=== PATIENT | female | born 1945 | race Caucasian/White ===

== ENCOUNTER → 2016-04-25 | Day surgery (SDC) | payer MEDICARE, OTHER ==
[~2016-04-25] MED LIST: ACET500T33 PO; ASCO10006 PO; ASPI81TA2 PO; BUPR150T4 PO; CALC-56 PO; CHOL10003 PO; DOCU-27 PO; ESTR0.5T PO; FLUT10SP NS; IBUP-1027 PO; IV RINGERS,LACTATED 1000ML 1,000 ML IV SCH; LIDOCAINE 2% PF Vial for OR 5 ML VIAL. ONE; LORA0.5T PO; MAGN250T5 PO; METH4TAB2 PO; MULT1TAB52 PO; OMEP40CA5 PO; PRAV40TA2 PO; PROPOFOL 20 ML IV ONE; RANI150T6 PO; TRAM50TA PO; ZOLP5TAB PO
[2016-04-25 08:13] VITALS: BP 119/75
== END | disposition home or self-care (01) ==
LOC: ENDOS 06:24
PROVIDERS: ATTEND Internal Medicine Gastroenterology
DX: K64.0 First degree hemorrhoids (principal); K29.50 Unspecified chronic gastritis without bleeding; K57.30 Diverticulosis of large intestine without perforation or abscess without bleeding; E78.00 Pure hypercholesterolemia, unspecified; G47.30 Sleep apnea, unspecified; K21.9 Gastro-esophageal reflux disease without esophagitis; F32.9 Major depressive disorder, single episode, unspecified; Z90.710 Acquired absence of both cervix and uterus; Z98.41 Cataract extraction status, right eye; Z98.42 Cataract extraction status, left eye; Z87.39 Personal history of other diseases of the musculoskeletal system and connective tissue; Z85.72 Personal history of non-Hodgkin lymphomas; Z86.14 Personal history of Methicillin resistant Staphylococcus aureus infection
CPT/HCPCS: 43235; 45378; J2704

== ENCOUNTER → 2016-05-12 | Outpatient (CLI) | payer MEDICARE, OTHER ==
[2016-04-25 08:13] VITALS: BP 119/75
[~2016-05-12] MED LIST changes: -IV RINGERS,LACTATED 1000ML 1,000 ML IV SCH; -LIDOCAINE 2% PF Vial for OR 5 ML VIAL. ONE; -PROPOFOL 20 ML IV ONE
[2016-05-12 11:41] LABS: ALBUMIN 3.6 g/dL (3.4-5.0); CALCIUM 9.2 mg/dL (8.5-10.1); CREATININE 1.1 mg/dL (0.6-1.0); GFR 48.8; POTASSIUM 4.3 mmol/L (3.5-5.1); TOTAL BILIRUBIN 0.4 mg/dL (0.2-1.0); TOTAL PROTEIN 7.2 g/dL (6.4-8.2)
[2016-05-12 11:43] LABS: CHOLESTEROL/HDL RATIO 3.6
== END | disposition home or self-care (01) ==
LOC: LAB 10:45
PROVIDERS: ATTEND Family Medicine
DX: M85.80 Other specified disorders of bone density and structure, unspecified site (principal); E78.5 Hyperlipidemia, unspecified
CPT/HCPCS: 36415; 80053; 80061; 82306

== ENCOUNTER → 2017-02-26 | Outpatient (CLI) | payer MEDICARE, OTHER ==
[2016-04-25 08:13] VITALS: BP 119/75
[~2017-02-26] MED LIST changes: +ASCO100020 PO; -ASCO10006 PO; +ASPI-630 PO; -ASPI81TA2 PO; +DOCU-109 PO; -DOCU-27 PO; +MAGN250T10 PO; -MAGN250T5 PO
--- NOTE | 2017-02-26 09:18 | RAD ---
DATE: 02/26/2017 EXAM: DIGITAL SCREEN BILAT W/CAD HISTORY: Screening study. COMPARISON: 02/26/2016 This study was interpreted with the benefit of Computerized Aided Detection (CAD). The breast parenchyma is heterogeneously dense, which could reduce sensitivity of mammography. Breast parenchyma level C. FINDINGS: Digital MLO and CC mammograms of both breasts were obtained. Comparison study is dated 02/26/2016. The breast parenchyma is heterogeneously dense which can obscure a lesion mammography (breast density code C ). Benign-appearing calcifications are seen within both breasts. Scattered vascular calcifications are again seen. No spiculated mass is noted. No malignant appearing calcification or area of architectural distortion is noted. Since the previous examination there has been no significant interval change. IMPRESSION: BI-RADS Category 1, negative. There is no mammographic evidence of malignancy. Routine yearly screening mammography is recommended for follow-up. BI-RADS CATEGORY: 1 NEGATIVE RECOMMENDED FOLLOW-UP: 12M 12 MONTH FOLLOW-UP PQRS compliance statement: Patient information was entered into a reminder system with a target due date 02/26/2018 for the next mammogram. Mammography is a sensitive method for finding small breast cancers, but it does not detect them all and is not a substitute for careful clinical examination. A negative mammogram does not negate a clinically suspicious finding and should not result in delay in biopsying a clinically suspicious abnormality. "Our facility is accredited by the [employer] Mammography [employer]."
== END | disposition home or self-care (01) ==
LOC: MAMMO 08:43
PROVIDERS: ATTEND Family Medicine
DX: Z12.31 Encounter for screening mammogram for malignant neoplasm of breast (principal)
CPT/HCPCS: G0202; 77067

== ENCOUNTER → 2017-04-02 | Outpatient (CLI) | payer MEDICARE, OTHER ==
[~2017-04-02] MED LIST changes: -ACET500T33 PO; -ASCO100020 PO; -ASPI-630 PO; -BUPR150T4 PO; -CALC-56 PO; -CHOL10003 PO; +CONTRAST GIVEN MC; -DOCU-109 PO; -ESTR0.5T PO; -FLUT10SP NS; -IBUP-1027 PO; -LORA0.5T PO; -MAGN250T10 PO; -METH4TAB2 PO; -MULT1TAB52 PO; -OMEP40CA5 PO; -PRAV40TA2 PO; -RANI150T6 PO; -TRAM50TA PO; -ZOLP5TAB PO
[2017-04-02] MEDS: IOHEXOL 300 MG/ML 100ML VIAL. IV (10:54)
[2017-04-02] MEDS: IOHEXOL 240 MG/ML 50ML VIAL. PO (10:55)
== END | disposition home or self-care (01) ==
LOC: CT 09:14
DX: C82.90 Follicular lymphoma, unspecified, unspecified site (principal)
CPT/HCPCS: 70492; 71270; 74178; Q9966; Q9967

== ENCOUNTER → 2017-09-25 | Outpatient (CLI) | payer MEDICARE, OTHER | END | disposition home or self-care (01) | LOC: ECHO 09:38 | DX: R00.2 Palpitations (principal); E78.5 Hyperlipidemia, unspecified; E78.00 Pure hypercholesterolemia, unspecified; K21.9 Gastro-esophageal reflux disease without esophagitis | CPT/HCPCS: 93306 ==

== ENCOUNTER → 2017-11-06 | Outpatient (CLI) | payer MEDICARE, OTHER ==
[2016-04-25 08:13] VITALS: BP 119/75
[~2017-11-06] MED LIST changes: +ACET500T33 PO; +ASCO100020 PO; +ASPI-630 PO; +BUPR150T4 PO; +CALC-56 PO; +CHOL10003 PO; -CONTRAST GIVEN MC; +DOCU-109 PO; +ESTR0.5T PO; +FLUT10SP NS; +IBUP-1027 PO; +LORA0.5T PO; +MAGN250T10 PO; +METH4TAB2 PO; +MULT1TAB52 PO; +OMEP40CA5 PO; +PRAV40TA2 PO; +RANI150T21 PO; +TRAM50TA PO; +ZOLP5TAB PO
--- NOTE | 2017-11-06 14:15 | CARD ---
MR#: [id number] Date of Study: 11/06/2017 Ordering Physician: LANDRY DANIELS, Referring Physician: LANDRY DANIELS, Tech: Sandra Nick IZA APPROVED REPORT INDICATION Chest Pain Reason : Patient complained of shortness of breath PROCEDURE The patient underwent an Exercise Stress Test using the Tramaine Protocol. Blood pressure, heart rate, a nd EKG were monitored. An Echocardiogram was performed by pm technician in four stages in quad fashion. At peak stress four se lected images were obtained and placed side by side with resting images for comparison. STRESS ECHO FINDINGS The resting Echocardiogram showed normal left ventricular systolic contractility with an estimated Ej ection Fraction of about 60 %. The Resting Echocardiogram showed normal augmentation of myocardial wall segments using a 16 segment model. The Stress Echocardiogram showed normal augmentation of myocardial wall segments using a 16 segment m frank. The Stress Echocardiogram left ventricular systolic contractility has an estimated Ejection Fraction of about 70%. Test Type: Exercise Stress Nurse/Tech: Francheska Pereira R.N. Test Indications: c/p Cardiac History and Allergies: see ehr Medications: see ehr Medical History: see ehr Resting ECG: SR inverted T waves in leads AVR,AVL, V1, V2 Resting Heart Rate: 65 bpm Resting Blood Pressure: 110/43mmHg Pretest Chest Pain: No chest pain Nurse/Tech Notes S1S2, lungs CTA Stress Symptoms fatigue and SOB. P wave became almost non-existant or possibly even inverted during recovery period a nd persisted till the end of recovery period POST EXERCISE Reason for Termination: Reached target heart rate Target HR: Yes Max HR: 135 bpm 92% of Maximum Predicted HR: 147 bpm Exercise duration: 7:51 min:sec, 3 Stage Exercise capacity: 10.1METs Max Blood Pressure: 132/68mmHg Blood Pressure response to exercise: Normal blood pressure response during stress. Heart Rate response to exercise: wnl Chest Pain: No. Arrhythmia: No. ST Change: No. INTERPRETATION Stress EKG Conclusion: Baseline EKG showed sinus rhythm. No ischemic changes at peak stress. No arr hythmias. Preliminary Notification Critical Value: No <Conclusion> Treadmill exercise stress echocardiogram did not show any evidence of ischemia or infarct. Normal left ventricle systolic function with ejection fraction estimated at 60%. Patient had good activity tolerance. Low risk for cardiac events. Signed by : Kieran Vázquez, Electronically Approved : 11/06/2017 14:14:31
== END | disposition home or self-care (01) ==
LOC: ECHO 12:41
PROVIDERS: ATTEND Internal Medicine Cardiovascular Disease
DX: R07.9 Chest pain, unspecified (principal); R06.02 Shortness of breath; I10 Essential (primary) hypertension; E78.5 Hyperlipidemia, unspecified; E78.00 Pure hypercholesterolemia, unspecified; G43.909 Migraine, unspecified, not intractable, without status migrainosus; K21.9 Gastro-esophageal reflux disease without esophagitis; Z86.2 Personal history of diseases of the blood and blood-forming organs and certain disorders involving the immune mechanism; Z85.72 Personal history of non-Hodgkin lymphomas; Z86.14 Personal history of Methicillin resistant Staphylococcus aureus infection; Z86.010 Personal history of colon polyps; Z90.710 Acquired absence of both cervix and uterus; Z91.09 Other allergy status, other than to drugs and biological substances; Z88.5 Allergy status to narcotic agent; Z88.2 Allergy status to sulfonamides; Z88.3 Allergy status to other anti-infective agents; Z88.6 Allergy status to analgesic agent
CPT/HCPCS: 93017; 93350

== ENCOUNTER → 2018-03-03 | Outpatient (CLI) | payer MEDICARE, OTHER ==
[2016-04-25 08:13] VITALS: BP 119/75
--- NOTE | 2018-03-04 08:29 | RAD ---
Chest radiograph 03/03/2018 4:58 PM INDICATION: Cough COMPARISON: Chest March 2017 TECHNIQUE: Frontal and lateral views of the chest are provided. FINDINGS: The cardiomediastinal silhouette is within normal limits. There are no pleural effusions. There is no pulmonary vascular congestion. There is no pneumothorax. There is tree-in-bud nodular airspace disease in the right upper lobe. Anterior cervical discectomy and fusion hardware is identified in the lower cervical spine. IMPRESSION: Tree-in-bud nodular airspace disease is identified in the right upper lobe. Findings may be seen in the setting of infectious/inflammatory pneumonitis. A 4-6 week follow-up chest radiograph may be of benefit to ensure resolution. Electronically signed by: Cassandra Malik MD (03/04/2018 8:25 AM) [id number]
== END | disposition home or self-care (01) ==
LOC: RAD 16:36
PROVIDERS: ATTEND Family Medicine
DX: R05 Cough (principal)
CPT/HCPCS: 71046

== ENCOUNTER → 2018-03-04 | Outpatient (CLI) | payer MEDICARE, OTHER ==
[2016-04-25 08:13] VITALS: BP 119/75
--- NOTE | 2018-03-04 12:19 | RAD ---
DATE: 03/04/2018 EXAM: MAMMO MARLENA SCREENING BILATERAL HISTORY: Routine screening COMPARISON: 02/26/2017 This study was interpreted with the benefit of Computerized Aided Detection (CAD). Breast Density: SCATTERED The breast parenchyma shows scattered fibroglandular densities. Breast parenchyma level B. FINDINGS: 2-D and 3-D tomosynthesis imaging was performed in CC and MLO projections. No new or enlarging breast densities are seen. Benign type calcifications are noted. No suspicious microcalcifications have developed. IMPRESSION: Stable mammograms without evidence of malignancy. BI-RADS CATEGORY: 2 BENIGN FINDING(S) RECOMMENDED FOLLOW-UP: 12M 12 MONTH FOLLOW-UP PQRS compliance statement: Patient information was entered into a reminder system with a target due date for the next mammogram. Mammography is a sensitive method for finding small breast cancers, but it does not detect them all and is not a substitute for careful clinical examination. A negative mammogram does not negate a clinically suspicious finding and should not result in delay in biopsying a clinically suspicious abnormality. "Our facility is accredited by the [employer] Mammography [employer]."
== END | disposition home or self-care (01) ==
LOC: MAMMO 09:25
PROVIDERS: ATTEND Family Medicine
DX: Z12.31 Encounter for screening mammogram for malignant neoplasm of breast (principal)
CPT/HCPCS: 77063; 77067

== ENCOUNTER → 2018-04-15 | Day surgery (SDC) | payer MEDICARE, OTHER ==
[~2018-04-15] MED LIST changes: +IV RINGERS,LACTATED 1000ML 1,000 ML IV SCH; +LIDOCAINE 1% PF 2 ML VIAL. ONE; +PROPOFOL 20 ML IV ONE
[2018-04-15 13:09] VITALS: BP 97/60
--- NOTE | 2018-04-15 21:06 | CONS ---
DATE OF CONSULTATION: 04/15/2018 REASON FOR CONSULTATION: Chronic cough. HISTORY OF PRESENT ILLNESS: A 73-year-old female with past medical history significant for GERD, endometriosis, hyperlipidemia, anemia, seen for persistent cough, evaluation with upper endoscopy is recommended to further assess. She presently denies any dysphagia or change in weight or appetite and is on ranitidine 150 mg b.i.d. for control. PAST MEDICAL HISTORY: GERD, hyperlipidemia, history of colonic polyps, sleep apnea. ALLERGIES: NSAIDS, SULFA, CODEINE, CELEBREX, MEPERIDINE, METOCLOPRAMIDE, IODINE. SOCIAL HISTORY: Nonsmoker, social drinker. FAMILY HISTORY: Noncontributory. REVIEW OF SYSTEMS: Per records. PHYSICAL EXAMINATION: GENERAL: Reveals a well-nourished, well-developed female. VITAL SIGNS: Temperature is 97, pulse 81, respirations 18. HEENT: Normocephalic, atraumatic head. Pupils and extraocular muscles are not tested. Sclerae anicteric. NECK: Supple. LUNGS: Clear. CARDIOVASCULAR: Reveals S1, S2 without S3, S4 or appreciable murmur. ABDOMEN: Soft abdomen, normal bowel sounds without appreciable hepatosplenomegaly. EXTREMITIES: Reveals no cyanosis, clubbing, edema. IMPRESSION: A nonproductive cough with persistent gastroesophageal reflux disease. Antireflux therapy with Zantac. We will recommend upper endoscopy to further assess. Risks and benefits have been previously discussed with the patient who is willing to proceed at this time. RAGHAV NAVARRO MD DR: ELSI/elier JOB#: [id number] / [id number]
--- NOTE | 2018-04-16 14:10 | PATHOLOGY ---
[facility] Accession Number: [id number] . 01 Material submitted: . DISTAL ESOPHAGUS BIOPSY . 01 Clinical history: . GERD, cough . 02 Diagnosis: Esophageal biopsies, distal esophagus: - Segments of hyperplastic squamous esophageal mucosa consistent with reflux esophagitis. (JPM:nathanael; 04/16/2018) QMS/04/16/2018 . 02 Comment: Sections of the distal esophageal biopsy reveal segments of tangentially oriented hyperplastic squamous esophageal mucosa. Findings are consistent with reflux esophagitis. There is no evidence of Guardado change, dysplasia, or malignancy. (JPM:nathanael; 04/16/2018) . 02 Electronically signed: . Mathieu Ahn MD, Pathologist NPI- [id number] . 01 Gross description: . Received in formalin labeled "Semet, Lori, distal esophageal BX," are 4 segments of knapp soft tissue measuring 1.1 x 0.9 x 0.1 cm in aggregate dimensions and ranging from 0.4 to 0.5 cm in maximum dimension. The specimen is submitted entirely in cassette A1. (TSD; 04/15/2018) TOB/TOB . 02 Pathologist provided ICD-10: K21.0 . 02 CPT . 004128 Specimen Comment: A courtesy copy of this report has been sent to Specimen Comment: [phone], , . Specimen Comment: Report sent to ,DR LOPEZ / DR FARAH Specimen Comment: A duplicate report has been generated due to demographic updates. Performed at: [address], [place], [place] [id number] MD Ruy Black MD Phone: [phone] Performed at: 02 [facility] [address] [place], [place] [id number] MD Mathieu Ahn MD Phone: [phone]
== END | disposition home or self-care (01) ==
LOC: ENDOS 10:42
PROVIDERS: ATTEND Internal Medicine Gastroenterology
DX: K21.0 Gastro-esophageal reflux disease with esophagitis (principal); E78.5 Hyperlipidemia, unspecified; G47.30 Sleep apnea, unspecified; D64.9 Anemia, unspecified; Z86.010 Personal history of colon polyps; Z88.2 Allergy status to sulfonamides; Z88.5 Allergy status to narcotic agent; Z88.8 Allergy status to other drugs, medicaments and biological substances; Z72.89 Other problems related to lifestyle
CPT/HCPCS: 43239; 88305; J2704

== ENCOUNTER → 2018-04-20 | Outpatient (CLI) | payer MEDICARE, OTHER ==
[2018-04-15 13:09] VITALS: BP 97/60
[~2018-04-20] MED LIST changes: +CIPR500T94 PO; +DENO60DI SQ; +ESTR10TA4 VG; +HYDR-2761 PO; -IV RINGERS,LACTATED 1000ML 1,000 ML IV SCH; -LIDOCAINE 1% PF 2 ML VIAL. ONE; +METO25TA4 PO; +METR500T PO; +ONDA4TAB7 PO; -PROPOFOL 20 ML IV ONE; +RANI-376 PO; -RANI150T21 PO
--- NOTE | 2018-04-20 15:15 | RAD ---
Examination: CT CHEST WO CONTRAST History: Follicular lymphoma Comparison/Correlation: 04/02/2017 CT neck chest abdomen and pelvis with contrast Findings: Axial images of the chest were obtained without contrast. Sagittal and coronal reformatted images were provided. Postoperative cervical spine fusion noted. The tracheobronchial tree is unremarkable. No infiltrates or effusions. No pulmonary nodules or mass lesions. Calcified granulomas are present. No enlarged thoracic lymph nodes. Multilevel degenerative disc space narrowing of the thoracic spine noted. Bony structures are otherwise unremarkable. Scarring involving the right renal superior pole noted. Impression: No infiltrate. Previously reported infiltrates have resolved. No enlarged thoracic lymph nodes. PQRS Compliance Statement: One or more of the following individualized dose reduction techniques were utilized for this examination: 1. Automated exposure control 2. Adjustment of the mA and/or kV according to patient size 3. Use of iterative reconstruction technique Electronically signed by: Jose Zuñiga MD (04/20/2018 3:12 PM) [id number]
== END | disposition home or self-care (01) ==
LOC: CT 14:54
PROVIDERS: ATTEND Internal Medicine Critical Care Medicine
DX: M48.04 Spinal stenosis, thoracic region (principal); J84.10 Pulmonary fibrosis, unspecified; R91.8 Other nonspecific abnormal finding of lung field; Z85.72 Personal history of non-Hodgkin lymphomas
CPT/HCPCS: 71250

== ENCOUNTER → 2018-05-20 | Outpatient (CLI) | payer MEDICARE, OTHER ==
[2018-04-15 13:09] VITALS: BP 97/60
[~2018-05-20] VITALS: Ht 152.4 cm; Wt 53.1 kg
[~2018-05-20] MED LIST changes: +NORMAL SALINE IV ONE; +SINCALIDE IV ONE
--- NOTE | 2018-05-20 12:21 | RAD ---
EXAM: Nuclear hepatobiliary scan. HISTORY: Pain. TECHNIQUE: Following intravenous administration of 5.2 mCi Tc 99m Choletec, anterior images of the abdomen were obtained at five minute intervals through one hour. Subsequently, 1.06 CCK was administered and additional images to assess gallbladder ejection fraction were obtained. FINDINGS: There is prompt radiotracer uptake by the liver. No focal defect is seen. There is normal excretion into the biliary tree. The gallbladder is visualized within 5 minutes and there is free flow into the duodenum. The gallbladder ejection fraction is 93 percent. The patient reports subjective abdominal cramping during medication administration for assessment of gallbladder contraction. IMPRESSION: 1. Normal gallbladder ejection fraction. 2. Subjective cramping during medication administration for assessment of gallbladder contraction. Electronically signed by: Shyla Rubi MD (05/20/2018 12:18 PM) [facility]
--- NOTE | 2018-05-21 09:10 | RAD ---
Abdominal ultrasound, 05/20/2018: HISTORY: Right upper quadrant pain The gallbladder is within normal limits in size. Several faint echoes are noted along the dependent wall of the gallbladder. No definite posterior acoustic shadowing is seen. This may represent sludge or small calculi. The gallbladder wall is not thickened. The common hepatic duct is of normal caliber. There is no evidence of a hepatic mass. The visualized portions of the pancreas are unremarkable. The spleen is of normal size. There is bilateral renal cortical scarring. The kidneys show no evidence of obstruction. There is atherosclerotic plaquing of the abdominal aorta without evidence of aneurysm. The inferior vena cava is unremarkable. No free fluid is evident in the abdomen. IMPRESSION: 1. Tiny echogenic foci in the gallbladder compatible with sludge versus tiny calculi. 2. No sonographic evidence of cholecystitis. 3. Bilateral renal cortical scarring. Electronically signed by: Melecio Ruano MD (05/21/2018 9:07 AM) [facility]
== END | disposition home or self-care (01) ==
LOC: US 07:52
PROVIDERS: ATTEND Internal Medicine Gastroenterology
DX: R10.11 Right upper quadrant pain (principal); N28.89 Other specified disorders of kidney and ureter; I70.0 Atherosclerosis of aorta; R14.2 Eructation
CPT/HCPCS: 76700; 78227; A9537; J2805

== ENCOUNTER 2018-06-09 15:52 | Emergency (ER) | payer MEDICARE, OTHER ==
[~2018-06-09] VITALS: Ht 152.4 cm; Wt 49.9 kg
[~2018-06-09 15:52] MED LIST changes: -CIPR500T94 PO; -DENO60DI SQ; -ESTR10TA4 VG; -HYDR-2761 PO; -METO25TA4 PO; -METR500T PO; -NORMAL SALINE IV ONE; -ONDA4TAB7 PO; -SINCALIDE IV ONE
[2018-06-09 16:31] LABS: BASO # 0.1 x10^3/uL (0.0-0.2); BASO % 1 % (0-3); EOS # 0.1 x10^3/uL (0.0-0.7); EOS % 1 % (0-3); HEMATOCRIT 35.5 % (36.0-47.0); HEMOGLOBIN 11.9 g/dL (12.0-15.5); LYMPH # 2.1 x10^3/uL (1.0-4.8); LYMPH % 26 % (24-48); MEAN CORPUSCULAR HEMOGLOBIN 32 pg (25-35); MEAN CORPUSCULAR HGB CONC 33 g/dL (31-37); MEAN CORPUSCULAR VOLUME 96 fL (79-100); MONO # 0.9 x10^3/uL (0.0-1.1); MONO % 11 % (0-9); NEUT % 61 % (31-73); PLATELET COUNT 292 x10^3/uL (140-400); RED CELL DISTRIBUTION WIDTH 12.5 % (11.5-14.5); WHITE BLOOD COUNT 8.2 x10^3/uL (4.0-11.0)
--- NOTE | 2018-06-09 16:33 | PHYS DOC ---
Past Medical History Past Medical History: GERD, High Cholesterol, Other Additional Past Medical Histor: Gastritis, shingles, non-Hodgkins lymphoma, DIVERTICULOSIS Past Surgical History: Hysterectomy, Tonsillectomy, Other Additional Past Surgical Histo: cervical laminectomy, R foot, bladder suspension Alcohol Use: Occasionally Drug Use: None Adult General Chief Complaint Chief Complaint: ABDOMINAL PAIN HPI HPI Patient is a 73 year old female presents with left lower quadrant pain onset proximally 6 hours ago she had some pain intermittently in this area for a while now however this seems worse now. 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 Allergies Allergies Allergies Coded Allergies Type Severity Reaction Last Updated Verified Sulfa (Sulfonamide Antibiotics) Allergy Intermediate rash 04/15/18 Yes adhesive tape Allergy Intermediate Rash. blisters 04/15/18 Yes NSAIDS (Non-Steroidal Anti-Inflamma Adverse Reaction Intermediate NAUSEA/ VOMITING 04/15/18 Yes celecoxib Adverse Reaction Intermediate chest pain 04/15/18 Yes codeine Adverse Reaction Intermediate nausea/vomiting 04/15/18 Yes fish derived Adverse Reaction Intermediate Nausea and Vomiting 04/15/18 Yes ketorolac Adverse Reaction Intermediate nausea/vomiting 04/15/18 Yes meperidine Adverse Reaction Intermediate nausea/vomiting 04/15/18 Yes metoclopramide Adverse Reaction Intermediate hyperactivity 04/15/18 Yes shellfish derived Adverse Reaction Intermediate Nausea and Vomiting 04/15/18 Yes Physical Exam Physical Exam Constitutional: Well developed, well nourished, no acute distress, non-toxic appearance. [] HENT: Normocephalic, atraumatic, bilateral external ears normal, oropharynx moist, no oral exudates, nose normal. [] Eyes: PERRLA, EOMI, conjunctiva normal, no discharge. [] Neck: Normal range of motion, no tenderness, supple, no stridor. [] Pulmonary: Normal respiratory effort no increased work of breathing no obvious chest wall trauma Abdomen: Bowel sounds normal, soft, left lower quadrant tenderness, no masses, no pulsatile masses. [] Skin: Warm, dry, no erythema, no rash. [] Back: No tenderness, no CVA tenderness. [] Extremities: No tenderness, no cyanosis, no clubbing, ROM intact, no edema. [] Neurologic: Alert and oriented X 3, normal motor function, normal sensory function, no focal deficits noted. [] Psychologic: Affect normal, judgement normal, mood normal. [] Current Patient Data Vital Signs Vital Signs Date Time Temp Pulse Resp B/P (MAP) Pulse Ox O2 Delivery O2 Flow Rate FiO2 06/09/18 17:07 60 141/68 (92) 95 Room Air 06/09/18 16:00 97.7 18 97.7 Lab Values Laboratory Tests Test 06/09/18 16:05 06/09/18 16:25 White Blood Count 8.2 x10^3/uL (4.0-11.0) Red Blood Count 3.70 x10^6/uL (3.50-5.40) Hemoglobin 11.9 g/dL (12.0-15.5) L Hematocrit 35.5 % (36.0-47.0) L Mean Corpuscular Volume 96 fL (79-100) Mean Corpuscular Hemoglobin 32 pg (25-35) Mean Corpuscular Hemoglobin Concent 33 g/dL (31-37) Red Cell Distribution Width 12.5 % (11.5-14.5) Platelet Count 292 x10^3/uL (140-400) Neutrophils (%) (Auto) 61 % (31-73) Lymphocytes (%) (Auto) 26 % (24-48) Monocytes (%) (Auto) 11 % (0-9) H Eosinophils (%) (Auto) 1 % (0-3) Basophils (%) (Auto) 1 % (0-3) Neutrophils # (Auto) 5.0 x10^3uL (1.8-7.7) Lymphocytes # (Auto) 2.1 x10^3/uL (1.0-4.8) Monocytes # (Auto) 0.9 x10^3/uL (0.0-1.1) Eosinophils # (Auto) 0.1 x10^3/uL (0.0-0.7) Basophils # (Auto) 0.1 x10^3/uL (0.0-0.2) Sodium Level 134 mmol/L (136-145) L Potassium Level 4.7 mmol/L (3.5-5.1) Chloride Level 100 mmol/L (98-107) Carbon Dioxide Level 25 mmol/L (21-32) Anion Gap 9 (6-14) Blood Urea Nitrogen 20 mg/dL (7-20) Creatinine 1.0 mg/dL (0.6-1.0) Estimated GFR (Cockcroft-Gault) 54.2 BUN/Creatinine Ratio 20 (6-20) Glucose Level 101 mg/dL (70-99) H Calcium Level 8.5 mg/dL (8.5-10.1) Total Bilirubin 0.2 mg/dL (0.2-1.0) Aspartate Amino Transferase (AST) 19 U/L (15-37) Alanine Aminotransferase (ALT) 16 U/L (14-59) Alkaline Phosphatase 39 U/L (46-116) L Total Protein 6.9 g/dL (6.4-8.2) Albumin 3.5 g/dL (3.4-5.0) Albumin/Globulin Ratio 1.0 (1.0-1.7) Urine Collection Type Unknown Urine Color Yellow Urine Clarity Clear Urine pH 7.0 Urine Specific [place] 1.020 Urine Protein Negative mg/dL (NEG-TRACE) Urine Glucose (UA) Negative mg/dL (NEG) Urine Ketones (Stick) Negative mg/dL (NEG) Urine Blood Negative (NEG) Urine Nitrite Positive (NEG) Urine Bilirubin Negative (NEG) Urine Urobilinogen Dipstick 0.2 mg/dL (0.2 mg/dL) Urine Leukocyte Esterase Large (NEG) Urine RBC 0 /HPF (0-2) Urine WBC Tntc /HPF (0-4) Urine Squamous Epithelial Cells None /LPF Urine Bacteria Many /HPF (0-FEW) Laboratory Tests 06/09/18 16:05 Laboratory Tests 06/09/18 16:05 EKG EKG [] Radiology/Procedures Radiology/Procedures [] Impressions: IMPRESSION: 1. Extensive distal colonic diverticulosis without convincing diverticulitis. There is mild circumferential colonic wall thickening, not within limits to suggest acute colitis of infectious or inflammatory etiologies. 2. Bilateral renal cortical scarring. 3. 4 mm right lower lobe pulmonary nodule. There is stable compared to the prior study. There are few additional previously demonstrated pulmonary nodules which are decreased, favoring a postinfectious or postinflammatory etiology. Electronically signed by: Shyla Rubi MD (06/09/2018 4:51 PM) [place] [id number] Course & Med Decision Making Course & Med Decision Making Pertinent Labs and Imaging studies reviewed. (See chart for details) []73-year-old female presenting with left lower quadrant discomfort noted CT scan finding showing possible early diverticulitis I did given her symptoms recommended Cipro and Flagyl in addition she has a UTI the Cipro should cover that urine culture is pending symptomatic treatment was also provided with [place] and Zofran she was instructed on the importance of follow-up with primary doctor for evaluation of possible colonoscopy depending on when her last one was. She is agreeable to plan questions were answered and she voiced understanding of the instructions Dragon Disclaimer Dragon Disclaimer This electronic medical record was generated, in whole or in part, using a voice recognition dictation system. Departure Departure Impression: Primary Impression: Abdominal pain Disposition: 01 HOME, SELF-CARE Condition: STABLE Referrals: LADONNA LOPEZ MD (PCP) Scripts Metronidazole (FLAGYL) 500 Mg Tablet 1 TAB PO BID, #20 TAB Prov: BELLA GRAVES MD 06/09/18 Ciprofloxacin Hcl (CIPRO) 500 Mg Tablet 1 TAB PO BID, #20 TAB Prov: BELLA GRAVES MD 06/09/18 Tramadol Hcl (TRAMADOL HCL) 50 Mg Tablet 50 MG PO Q4HRS PRN for PAIN, #20 TAB 0 Refills Prov: BELLA GRAVES MD 06/09/18 Ondansetron Hcl (ZOFRAN) 4 Mg Tablet 4 MG PO PRN TID PRN for NAUSEA/VOMITING, #15 nausea/vomiting Prov: BELLA GRAVES MD 06/09/18 BELLA GRAVES MD Jun 09, 2018 16:33
[2018-06-09 16:39] LABS: CALCIUM 8.5 mg/dL (8.5-10.1); GFR 54.2; POTASSIUM 4.7 mmol/L (3.5-5.1)
[2018-06-09 16:44] LABS: BILIRUBIN,URINE NEGATIVE (NEG); CLARITY,URINE CLEAR; COLOR,URINE YELLOW; NITRITE,URINE POSITIVE (NEG); PROTEIN,URINE NEGATIVE (NEG-TRACE); UROBILINOGEN,URINE 0.2 mg/dL (0.2 mg/dL)
[2018-06-09 16:45] LABS: ALBUMIN 3.5 g/dL (3.4-5.0); TOTAL BILIRUBIN 0.2 mg/dL (0.2-1.0); TOTAL PROTEIN 6.9 g/dL (6.4-8.2)
[2018-06-09 16:49] LABS: BACTERIA,URINE MANY /HPF (0-FEW); RBC,URINE 0 /HPF (0-2); WBC,URINE TNTC /HPF (0-4)
--- NOTE | 2018-06-09 16:54 | RAD ---
EXAM: Abdomen and pelvis CT without intravenous contrast. HISTORY: Left lower quadrant pain. TECHNIQUE: Computed tomographic images of the abdomen and pelvis were obtained without contrast. Multiplanar reformatting was performed. *One or more of the following individualized dose reduction techniques were utilized for this examination: 1. Automated exposure control. 2. Adjustment of the mA and/or kV according to patient size. 3. Use of iterative reconstruction technique. COMPARISON: 03/21/2015. FINDINGS: Evaluation of the lower thorax demonstrates right middle lobe and lingular scarring and slight bronchiectasis. There is a 4 mm nodule within the right lower lobe. No hepatic lesion is seen on this noncontrast exam. The gallbladder, pancreas and spleen are unremarkable. There is a small proximal duodenal diverticulum. The adrenal glands are unremarkable. There is anterior right and superior left renal cortical thinning likely due to scarring. No solid or cystic renal lesion is seen. There is no evidence of obstructive uropathy. The bladder is unremarkable. There is no appendicitis. There is moderate colonic stool. There is distal colonic diverticulosis. There is no convincing acute diverticulitis. There is slight circumferential wall thickening involving the colon, without convincing acute colitis of infectious or inflammatory etiologies. There is aortic and aortic branch vessel atherosclerosis. No pathologically enlarged lymph node is seen. There is slight nonspecific mesenteric stranding. There is no suspicious osseous lesion. There is degenerative change at the lumbosacral junction. There is grade 1 anterolisthesis of and L4 on L5. IMPRESSION: 1. Extensive distal colonic diverticulosis without convincing diverticulitis. There is mild circumferential colonic wall thickening, not within limits to suggest acute colitis of infectious or inflammatory etiologies. 2. Bilateral renal cortical scarring. 3. 4 mm right lower lobe pulmonary nodule. There is stable compared to the prior study. There are few additional previously demonstrated pulmonary nodules which are decreased, favoring a postinfectious or postinflammatory etiology. Electronically signed by: Shyla Rubi MD (06/09/2018 4:51 PM) [place] [id number]
[2018-06-09 17:07] VITALS: BP 141/68
[2018-06-09] MEDS ORDERED: CIPR500T94 PO (17:13)
[2018-06-09] MEDS ORDERED: METR500T PO (17:13)
[2018-06-09] MEDS ORDERED: TRAM50TA PO (17:13)
[2018-06-09] MEDS ORDERED: ONDA4TAB7 PO (17:13)
--- NOTE | 2018-06-14 15:15 | VNOTE ---
CALL BACK NOTE CALL BACK Microbiology 06/09/18 Urine Culture - Final, Complete 06/09/18 Urine Culture Result 1 (HAMLET) - Final, Complete 06/09/18 Antimicrobic Susceptibility - Final, Complete No answer on June 24, 2018 at 1509. Patient needs Macrobid 100 mg tablets take 1 tablet twice a day 7 days dispense 14 tablets no refills. FRANCOIS MERCADO Jun 14, 2018 15:15
[2018-07-12] MEDS ORDERED: ESTR10TA4 VG (13:13)
[2018-07-12] MEDS ORDERED: DENO60DI SQ (13:13)
[2018-07-12] MEDS ORDERED: METO25TA4 PO (13:13)
== END 2018-06-09 17:30 | disposition home or self-care (01) ==
LOC: ER 15:52
DX: R10.32 Left lower quadrant pain (principal); K21.9 Gastro-esophageal reflux disease without esophagitis; E78.00 Pure hypercholesterolemia, unspecified; Z90.710 Acquired absence of both cervix and uterus; Z88.2 Allergy status to sulfonamides; Z88.5 Allergy status to narcotic agent; Z88.1 Allergy status to other antibiotic agents; Z88.6 Allergy status to analgesic agent; Z88.8 Allergy status to other drugs, medicaments and biological substances; Z91.013 Allergy to seafood
CPT/HCPCS: 36415; 74176; 80053; 81001; 85025; 87086; 87186; 99284-25

== ENCOUNTER 2018-07-14 05:51 | Observation (INO) | payer MEDICARE, OTHER ==
[2018-07-14] VITALS (11 sets, daily range): BP systolic 82–116; BP diastolic 32–74
[~2018-07-14] VITALS: Ht 152.4 cm; Wt 53.1 kg
[~2018-07-14 05:51] MED LIST changes: +CIPR500T94 PO; +DENO60DI SQ; +ESTR10TA4 VG; +METO25TA4 PO; +METR500T PO; +ONDA4TAB7 PO
[2018-07-14] MEDS ORDERED: SURGICEL HEMOSTAT 4X8 EACH. ONE (06:02)
[2018-07-14] MEDS ORDERED: BUPIVAC MPF-EPI 0.5%-1:200000 30 ML VIAL. ONE (06:02)
[2018-07-14] MEDS ORDERED: GLUCAGON,HUMAN RECOMBINANT 1 MG/ML VIAL. ONE (06:02)
[2018-07-14] MEDS ORDERED: IOHEXOL 300 MG/ML 50 ML VIAL. ONE (06:02)
[2018-07-14] MEDS ORDERED: IV RINGERS,LACTATED 1000ML 1,000 ML IV SCH (07:00)
[2018-07-14] MEDS ORDERED: fentaNYL PF VIAL 100 MCG/2 ML VIAL IV PRN ×2 (07:00)
[2018-07-14] MEDS ORDERED: PROCHLORPERAZINE 10 MG/2 ML VIAL. IV PRN (07:00)
[2018-07-14] MEDS ORDERED: HYDROmorphone 2 MG/ML VIAL IV PRN (07:00)
[2018-07-14] MEDS ORDERED: ceFAZolin 2GM PREMIX 2 GM/50 ML BAG IV ONE (07:00)
[2018-07-14] MEDS ORDERED: LIDOCAINE 1% PF 2 ML VIAL. ID PRN (07:00)
[2018-07-14] MEDS ORDERED: MORPHINE SULFATE 2 MG/ML VIAL. IV PRN (07:00)
[2018-07-14] MEDS ORDERED: fentaNYL PF VIAL 250 MCG/5 ML VIAL ONE (07:22)
[2018-07-14] MEDS ORDERED: MIDAZOLAM HCL/PF 2 MG/2 ML VIAL. ONE (07:22)
[2018-07-14] MEDS ORDERED: ROCURONIUM 100 MG/10 ML VIAL. ONE (07:23)
[2018-07-14] MEDS ORDERED: DEXAMETHASONE SOD PHOS 4 MG/ML VIAL ONE (07:46)
[2018-07-14] MEDS ORDERED: PROPOFOL 20 ML IV ONE (07:46)
[2018-07-14] MEDS ORDERED: ONDANSETRON PF 4 MG/2 ML VIAL. ONE (07:46)
[2018-07-14] MEDS ORDERED: LIDOCAINE 2% PF 5 ML VIAL. ONE (07:46)
[2018-07-14] MEDS ORDERED: ePHEDrine PF IN SALINE 50 MG/10 ML SYRINGE. IV ONE ×2 (07:51→07:52)
[2018-07-14] MEDS ORDERED: NEOSTIGMINE METHYLSULFATE 5 MG/5 ML SYRINGE. ONE (08:16)
[2018-07-14] MEDS ORDERED: GLYCOPYRROLATE 1 MG/5 ML VIAL. ONE (08:16)
--- NOTE | 2018-07-14 08:22 | RAD ---
Intraoperative cholangiogram, 07/14/2018: HISTORY: Cholecystectomy 3 spot films from surgery are presented for review. 26 seconds of fluoroscopy time was utilized. Contrast has been injected into the cystic duct remnant. There is good flow contrast into the duodenum at the ampulla. No filling defect is seen in the common bile duct to suggest a retained calculus. The incompletely opacified intrahepatic ducts are unremarkable. There is reflux of contrast into a portion of the pancreatic duct which is unremarkable. A small contrast collection along the medial aspect of the second portion of the duodenum near the ampulla is compatible with a diverticulum. No contrast extravasation is seen. IMPRESSION: 1. No evidence of a retained biliary tract calculus. 2. Duodenal diverticulum. Electronically signed by: Melecio Ruano MD (07/14/2018 8:19 AM) [facility]
[2018-07-14] MEDS ORDERED: ONDANSETRON PF 4 MG/2 ML VIAL. IV PRN (08:30)
[2018-07-14] MEDS ORDERED: HYDROcodone/APAP 5/325MG 1 TAB TABLET PO PRN ×2 (08:30)
[2018-07-14] MEDS ORDERED: DEXTROSE 50% 25 GM / 50ML DISP.SYRIN. IV PRN (08:30)
[2018-07-14] MEDS ORDERED: 0.9 % SODIUM CHLORIDE 10 ML DISP.SYRIN. IV PRN (08:30)
--- NOTE | 2018-07-14 08:36 | PDOC4 ---
Operative Note Operative Note Operative Note: Preoperative Diagnosis: Symptomatic cholelithiasis Postoperative Diagnosis: Same Procedure: Laparoscopic cholecystectomy with intraoperative cholangiogram Surgeons: Kvng Anesthesia: GenAroldo Estimated Blood Loss: 10 mL Specimen: Gallbladder to pathology Drains: None Complications: None Indications: The patient is a 73-year-old female who is been experiencing recurrent upper abdominal discomfort and bloating consistent with biliary colic. Her evaluation identified sludge versus gallstones. Surgical treatment was offered by means of a laparoscopic cholecystectomy. The risks of surgery were discussed which include bleeding, infection, bile duct injury, bile leak, pain, the potential for additional surgeries or procedures. The patient understands and would like to proceed. Description: The patient was taken to the operating room and laid supine on the operating table. General anesthesia was performed. The abdomen was prepped with ChloraPrep and draped in a standard surgical fashion. A small infraumbilical incision was made with a scalpel. The Veress needle was then inserted and a pneumoperitoneum was then created. A 5 mm trocar was then inserted and the laparoscope was introduced. In the upper midabdomen a 5 mm trocar was inserted and in the right upper quadrant two 2.3 mm mini lap graspers were inserted. The gallbladder was retracted cephalad. The cystic duct was dissected free from surrounding tissues. One clip was placed on the duct near the gallbladder junction. An opening was made in the duct and a cholangiocatheter placed within and secured with a clip. Using contrast dye and fluoroscopy an intraoperative cholangiogram was performed that appeared u nremarkable apart from a duodenal diverticulum. The clip and catheter were then withdrawn. Two clips were placed on the cystic duct and it was divided. The cystic artery was then identified, dissected free, doubly clipped and divided as well. The gallbladder was then mobilized away from the liver with cautery. The umbilical 5 millimeter trocar was exchanged for an 11 millimeter trocar. The gallbladder was then placed in an endoscopic bag and extracted at the umbilical trocar site. The fascia there was closed with an 0 Vicryl suture. All blood and irrigation fluid was suctioned and hemostasis was good. The remaining ports were removed and the pneumoperitoneum was relieved. The skin incisions were injected with half percent Marcaine with epinephrine, and all were closed using 4-0 Monocryl suture. Steri-Strips and dressings were then applied. The patient tolerated the procedure well and was sent to the recovery room in stable condition. At the end of the case all counts were correct. RAGHAV SMALL MD July 14, 2018 08:36
[2018-07-14] MEDS: CALCIUM CARB/VIT D3 500/200 TABLET. PO SCH ×2 (09:00→20:33)
[2018-07-14] MEDS: IV 1/2 NORMAL SALINE 1,000 ML IV SCH (10:50)
[2018-07-14] MEDS: ONDANSETRON PF 4 MG/2 ML VIAL. IV PRN ×2 (10:50→18:12)
[2018-07-14] MEDS: HYDROmorphone 2 MG/ML VIAL IV PRN (10:58)
[2018-07-14] MEDS ORDERED: ACETAMINOPHEN 325 MG TABLET. PO PRN (17:00)
[2018-07-14] MEDS: traMADol 50 MG TABLET PO PRN (20:31)
[2018-07-15] MEDS: HYDROmorphone 2 MG/ML VIAL IV PRN (00:52)
[2018-07-15 00:55] VITALS: BP 98/50
[2018-07-15 01:32] VITALS: BP 97/49
[2018-07-15] MEDS: traMADol 50 MG TABLET PO PRN ×2 (02:34→14:23)
[2018-07-15] MEDS: IV 1/2 NORMAL SALINE 1,000 ML IV SCH ×2 (02:38→11:09)
[2018-07-15 03:00] VITALS: BP 99/68
[2018-07-15 07:00] VITALS: BP 96/47
[2018-07-15] MEDS ORDERED: CHOLECALCIFEROL (VITAMIN D3) 1,000 UNIT TABLET PO SCH (08:00)
--- NOTE | 2018-07-15 09:06 | NUR ---
IP: Pt has a recent hx of (R)E.coli with ESBL in urine on 06/09/18. Pt to be in contact precautions until there are 2 negative urine cultures 7 days apart without antibiotics.
--- NOTE | 2018-07-15 09:26 | PDOC ---
RENU WILLIAM TOOL AND DIE SUPERVISOR 07/15/18 0926: SURGICAL PROGRESS NOTE Subjective tolerating diet tired, has only ambulated to bathroom needed IV med last night Vital Signs Vital Signs Date Time Temp Pulse Resp B/P (MAP) Pulse Ox O2 Delivery O2 Flow Rate FiO2 07/15/18 08:00 Room Air 07/15/18 07:00 98.1 77 16 96/47 (63) 91 98.1 07/15/18 03:00 2.0 I&O Intake and Output 07/15/18 07:00 Intake Total 3570 ml Output Total 485 ml Balance 3085 ml Intake IV Total 3570 ml Output Urine Total 475 ml Estimated Blood Loss 10 ml # Voids 2 General: Alert, Oriented X3, Cooperative, No acute distress Abdomen: Soft, Other (incisional TTP) Assessment/Plan s/p jerad some low BPs increase activity possible home later today if BP stable RAGHAV SMALL MD 07/15/18 1051: SURGICAL PROGRESS NOTE Assessment/Plan Agree with above RENU WILLIAM APRN July 15, 2018 09:26 RAHGAV SMALL MD July 15, 2018 10:51
[2018-07-15] MEDS: CALCIUM CARB/VIT D3 500/200 TABLET. PO SCH (09:27)
[2018-07-15] MEDS ORDERED: HYDR-2761 PO (09:27)
--- NOTE | 2018-07-15 09:29 | DISCH ---
DISCHARGE INSTRUCTIONS Condition on Discharge Condition on Discharge: Stable Activity After Discharge Activity Instructions for Disc: Activity as tolerated, Avoid exertion Lifting Instructions after Dis: No heavy lifting, No pulling or pushing, Do not lift >10 pounds Driving Instructions after Dis: Do not drive today Diet after Discharge Diet after Discharge: Low Fat, Regular Additional Diet Restrictions: resume home diet Wound Incision Care Wound/Incision Care: Ice to area for comfort, May get incision wet, No wound care needed Contacting the DRAroldo after DC Call your doctor for: Concerns you may have Follow-Up Follow up with: Dr Calderon 2 week, call to schedule [phone] RENU WILLIAM WEB PRODUCTION ARTIST July 15, 2018 09:29
[2018-07-15 11:00] VITALS: BP 91/70
--- NOTE | 2018-07-15 11:27 | NUR ---
SW following for discharge planning. Discussed with RN, pt is from home with , gets around fine. Possible discharge home today if BP stable. RN advised no SW needs.
[2018-07-15 15:00] VITALS: BP 116/48
--- NOTE | 2018-07-15 15:06 | PATHOLOGY ---
[facility] Accession Number: [id number] . 01 Material submitted: . gallbladder - GALLBLADDER . 01 Clinical history: . Gallstones . 02 Diagnosis: Gallbladder, cholecystectomy: - Chronic cholecystitis. (JPM:nathanael; 07/15/2018) QMS/07/15/2018 . 02 Comment: There are no calculi identified within the gallbladder lumen or specimen container. Sections of the gallbladder show focal mild chronic inflammation. There is no evidence of malignancy. (JPM:nathanael; 07/15/2018) . 02 Electronically signed: . Mathieu Ahn MD, Pathologist NPI- [id number] . 01 Gross description: . The specimen is received in formalin, labeled "Lori Semet, gallbladder". Received is a previously punctured gallbladder measuring 7.2 x 3.5 x 2.1 cm in greatest dimensions displaying a blue-bright, bile-stained serosal surface. Opening the specimen reveals a velvety, bile-stained mucosa with a gallbladder wall thickness of 0.1 cm. Calculi are not present upon filtration of the gallbladder, and no masses or lesions are noted grossly. Play Writer sections, to include the proximal margin, are submitted in cassette A1. (CAA; 07/14/2018) QAC/QAC . 02 Pathologist provided ICD-10: K81.1 . 02 CPT . 313868 Specimen Comment: A courtesy copy of this report has been sent to Specimen Comment: [phone], . Specimen Comment: Report sent to / DR LOPEZ Performed at: [address], [place], [place] [id number] MD Ruy Black MD Phone: [phone] Performed at: 02 [facility] [address] [place], [place] [id number] MD Mathieu Ahn MD Phone: [phone]
--- NOTE | 2018-07-15 17:22 | NUR ---
Pt discharged home with self care. Discharge instructions and prescriptions discussed. Pt verbalized understanding. IV removed without complications. Pt assisted to wheelchair and was taken to main entrance and secured in vehicle with .
--- NOTE | 2018-07-19 09:03 | PDOC3 ---
Discharge Summary Visit Information Date of Admission: July 14, 2018 Date of Discharge: July 15, 2018 Admitting Diagnosis: Symptomatic cholelithiasis Final Diagnosis Symptomatic cholelithiasis Brief Hospital Course Allergies Allergies Coded Allergies Type Severity Reaction Last Updated Verified Sulfa (Sulfonamide Antibiotics) Allergy Intermediate rash 07/14/18 Yes adhesive tape Allergy Intermediate Rash. blisters 07/14/18 Yes I S O L A T I O N *CONTACT* Allergy Unknown 07/14/18 Yes NSAIDS (Non-Steroidal Anti-Inflamma Adverse Reaction Intermediate NAUSEA/VOMITING 07/14/18 Yes alendronate sodium Adverse Reaction Intermediate 07/14/18 Yes celecoxib Adverse Reaction Intermediate chest pain 07/14/18 Yes codeine Adverse Reaction Intermediate nausea/vomiting 07/14/18 Yes fish derived Adverse Reaction Intermediate Nausea and Vomiting 07/14/18 Yes ketorolac Adverse Reaction Intermediate nausea/vomiting 07/14/18 Yes meperidine Adverse Reaction Intermediate nausea/vomiting 07/14/18 Yes metoclopramide Adverse Reaction Intermediate hyperactivity 07/14/18 Yes shellfish derived Adverse Reaction Intermediate Nausea and Vomiting 07/14/18 Yes Brief Hospital Course Ms. Hernández is a 73 old female who underwent Laparoscopic cholecystectomy with intraoperative cholangiogram. Postoperatively tolerating diet, ambulating, and ready for discharge home. Discharge Information Condition at Discharge: Stable Follow Up: Weeks (1) Disposition/Orders: D/C to Home Scheduled Ascorbic Acid (Vitamin C) 1,000 Mg Tablet.er, 1,000 MG PO DAILY08 for supplemental vitamin, (Reported) Entered as Reported by: ELVER ALDRIDGE on 12/14/14 1543 Last Taken: Unknown Dose on 07/13/18 Last Action: Reviewed on 07/14/18 0650 by BERLIN MERCADO Bupropion Hcl (Buproban) 150 Mg Tablet.er, 150 MG PO BID for control depression, (Reported) Entered as Reported by: HIRAM ALVARENGA on 03/09/14 0623 Last Taken: Unknown Dose on 07/13/18 Last Action: Reviewed on 07/14/18 0650 by BERLIN MERCADO Calcium Carbonate/Vitamin D3 (Calcium 500 + Vit D 200 Caplet) 1 Each Tablet, 1 EACH PO BID for supplemental vitamins, (Reported) Entered as Reported by: ELVER ALDRIDGE on 10/18/15 0913 Last Taken: Unknown Dose on 07/13/18 Last Action: Continued on 07/14/18 0834 by RAGHAV SMALL Cholecalciferol (Vitamin D3) (Vitamin D3) 1,000 Unit Tablet, 1,000 UNIT PO DAILY08 for supplement vitamin d , (Reported) Entered as Reported by: ELVER ALDRIDGE on 12/14/141542 Last Taken: Unknown Dose on 07/13/18 Last Action: Continued on 07/14/1834 by RAGHAV SMALL Denosumab (Prolia) 60 Mg/1 Ml Disp.syrin, 60 MG SQ QMONTH for osteopenia, (Reported) Entered as Reported by: LESLIE VUONG on 07/12/181312 Last Taken: Unknown Dose on 12/23/17 Last Action: HELD on 07/14/18833 by RAGHAV SMALL Estradiol (Yuvafem) 10 Mcg Tablet, 10 MCG VG TWICE WEEKLY for urethral prolapse, (Reported) Entered as Reported by: LESLIE VUONG on 07/12/181312 Last Taken: Unknown Dose on 07/13/18 Last Action: Reviewed on 07/14/18649 by BERLIN MERCADO Magnesium Oxide (Magnesium) 250 Mg Tablet, 250 MG PO DAILY08 for supplement, (Reported) Entered as Reported by: ELVER ALDRIDGE on 10/18/15 0913 Last Taken: Unknown Dose on 07/13/18 Last Action: Reviewed on 07/14/18649 by BERLIN MERCADO Metoprolol Tartrate (Metoprolol Tartrate) 25 Mg Tablet, 25 MG PO BID for irregular heartbeat, #60 Ref 0 (Reported) Entered as Reported by: LESLIE VUONG on 07/12/181312 Last Taken: Unknown Dose on 07/14/18 0515 Last Action: Reviewed on 07/14/1850 by BERLIN MERCADO Multivitamin (Multivitamins) 1 Each Tablet, 1 TAB PO DAILY08 for supplemental vitamin, #90 Ref 3 (Reported) Entered as Reported by: ELVER ALDRIDGE on 12/14/141542 Last Taken: Unknown Dose on 07/10/18 Last Action: Reviewed on 07/14/1850 by BERLIN MERCADO Pravastatin Sodium (Pravastatin Sodium) 40 Mg Tablet, 1 TAB PO QHS for control cholesterol, #90 Ref 1 (Reported) Entered as Reported by: HIRAM ALVARENGA on 03/09/14 0623 Last Taken: Unknown Dose on 07/13/18 Last Action: Reviewed on 07/14/18 0650 by BERLIN MERCADO Ranitidine Hcl (Zantac) 150 Mg Tablet, 150 MG PO BID for control reflux, (Reported) Entered as Reported by: LESLIE VUONG on 12/19/15 1307 Last Taken: Unknown Dose on 07/14/18 0515 Last Action: Reviewed on 07/14/18 0650 by BERLIN MERCADO Scheduled PRN Acetaminophen (Tylenol Extra Strength) 500 Mg Tablet, 1,000 MG PO PRN PRN for PAIN, (Reported) Entered as Reported by: ELVER ALDRIDGE on 12/14/14 1543 Last Taken: Unknown Dose on 07/13/18 Last Action: HELD on 07/14/18 0834 by RAGHAV SMALL Hydrocodone Bit/Acetaminophen (Hydrocodone-Apap 5-325 ) 1 Tab Tablet, 1 TAB PO PRN Q4HRS PRN for MODERATE PAIN, #30 Ref 0 Prescribed by: Renu Wilson on 07/15/18 0927 Ibuprofen (Ibuprofen) 400 Mg Tablet, 1 TAB PO PRN PRN for for pain, #20 (Reported) Entered as Reported by: ELVER ALDRIDGE on 12/14/14 1543 Last Taken: Unknown Dose on 07/10/18 Last Action: Reviewed on 07/14/18 0650 by BERLIN MERCADO Discontinued Medications Aspirin (Aspirin) 81 Mg Tab.chew, 81 MG PO DAILY, (Reported) Entered as Reported by: LESLIE VUONG on 12/19/15 1307 Last Action: Discontinued on 07/12/18 1313 by RENU GOSS APRN July 19, 2018 09:03
== END 2018-07-15 16:45 | disposition home or self-care (01) ==
LOC: SURG 05:51 → OPSVCIP 08:46 → 4 NORTH 10:17
PROVIDERS: ADMIT Surgery; ATTEND Surgery
DX: K80.20 Calculus of gallbladder without cholecystitis without obstruction (principal); N39.0 Urinary tract infection, site not specified; J42 Unspecified chronic bronchitis; E78.5 Hyperlipidemia, unspecified; K29.70 Gastritis, unspecified, without bleeding; K20.9 Esophagitis, unspecified; C85.80 Other specified types of non-Hodgkin lymphoma, unspecified site; F32.9 Major depressive disorder, single episode, unspecified; K59.00 Constipation, unspecified; G62.9 Polyneuropathy, unspecified; B02.9 Zoster without complications; H93.19 Tinnitus, unspecified ear; Z98.890 Other specified postprocedural states
CPT/HCPCS: 47563; 74300; 88304; 96374; 96375; 96376; A7015; G0378; G0379; J0171; J0696; J1100; J1170; J2001; J2250; J2405; J2704; J2710; J3010; J3490; J7030; J7120; Q9967; J1610

== ENCOUNTER → 2019-02-22 | Outpatient (CLI) | payer MEDICARE, OTHER ==
[~2019-02-22] MED LIST changes: +HYDR-2761 PO; +IOHEXOL 240 MG/ML 50ML VIAL. PO ONE; +IOHEXOL 300 MG/ML 100ML VIAL. IV ONE; +OMEP40CA45 PO; -OMEP40CA5 PO
--- NOTE | 2019-02-22 11:21 | RAD ---
EXAM: CT OF THE CHEST, ABDOMEN AND PELVIS WITH CONTRAST. HISTORY: Lymphoma. TECHNIQUE: Computed tomography of the chest, abdomen and pelvis was performed after the intravenous administration of iodinated contrast. COMPARISON: 06/09/2018, 04/02/2017. FINDINGS: Bone windows reveal no suspicious lesions. Anterior cervical discectomy and fusion changes are partially visualized. There are no pathologically enlarged mediastinal or axillary lymph nodes. There is no pleural or pericardial effusion. The heart is not enlarged. Lung windows reveal no infiltrates. There is mild air trapping in the right base. There are no pathologically enlarged lymph nodes. The gallbladder is surgically absent. The common duct measures 7 mm and tapers normally distally. The pancreas, spleen, liver and left kidney are unremarkable. There is cortical scarring at the right upper pole. The uterus is surgically absent. Sigmoid diverticulosis is moderate. There is no small bowel obstruction. IMPRESSION: 1. No pathologically enlarged lymph nodes or other evidence of active disease. *One or more of the following individualized dose reduction techniques were utilized for this examination: 1. Automated exposure control. 2. Adjustment of the mA and/or kV according to patient size. 3. Use of iterative reconstruction technique. Electronically signed by: Deya Sam MD (02/22/2019 11:18 AM) [facility]
== END | disposition home or self-care (01) ==
LOC: CT 08:56
PROVIDERS: ATTEND Internal Medicine Hematology & Oncology
DX: C82.00 Follicular lymphoma grade I, unspecified site (principal); K57.30 Diverticulosis of large intestine without perforation or abscess without bleeding; Z98.1 Arthrodesis status; K21.9 Gastro-esophageal reflux disease without esophagitis; E78.5 Hyperlipidemia, unspecified; Z90.49 Acquired absence of other specified parts of digestive tract; Z90.710 Acquired absence of both cervix and uterus
CPT/HCPCS: 71260; 74177; Q9966; Q9967

== ENCOUNTER → 2019-02-22 | Outpatient (CLI) | payer MEDICARE, OTHER ==
[~2019-02-22] MED LIST changes: -IOHEXOL 240 MG/ML 50ML VIAL. PO ONE; -IOHEXOL 300 MG/ML 100ML VIAL. IV ONE
--- NOTE | 2019-02-23 11:03 | RAD ---
DATE: February 22, 2019 EXAM: MAMMO MARLENA SCREENING BILATERAL HISTORY: Screening study. COMPARISON: 2016 and 2018 This study was interpreted with the benefit of Computerized Aided Detection (CAD). 2-D digital mammographic views of both breasts were performed in the CC and MLO projections. 3-D digital tomosynthesis images of both breasts were performed in the CC and MLO projections and reviewed on a computer workstation. FINDINGS: Breast Density: SCATTERED The breast parenchyma shows scattered fibroglandular densities. Breast parenchyma level B.. There are no dominant suspicious masses, suspicious microcalcifications or evidence of architectural distortion. Bilateral breast nodularity is stable. IMPRESSION: No mammographic indicators for malignancy. BI-RADS CATEGORY: 2 BENIGN FINDING RECOMMENDED FOLLOW-UP: 12M 12 MONTH FOLLOW-UP PQRS compliance statement: Patient information was entered into a reminder system with a target due date February 24, 2020 for the next mammogram. Mammography is a sensitive method for finding small breast cancers, but it does not detect them all and is not a substitute for careful clinical examination. A negative mammogram does not negate a clinically suspicious finding and should not result in delay in biopsying a clinically suspicious abnormality. "Our facility is accredited by the [employer] Mammography Program." The patient's breast density may affect the ability of mammography to detect breast cancer. There are 4 categories of breast density, A, B, C and D. Breast density A means that most of the breast tissue is replaced with adipose tissue and therefore is not dense. Breast density B means that the breast tissue is mildly dense and scattered. Breast density C means that the breast tissue is heterogeneously dense. Breast density D means that the breast tissue is very dense. Breast densities especially C and D may decrease the sensitivity of mammography to detect breast cancer. Therefore, the patient may benefit from 3-D breast mammography (3D breast tomography) as a part of their screening mammogram. Insurance may or may not pay for this additional imaging. The patient's breast density based on today's mammogram is category B.
== END | disposition home or self-care (01) ==
LOC: MAMMO 08:50
PROVIDERS: ATTEND Family Medicine
DX: Z12.31 Encounter for screening mammogram for malignant neoplasm of breast (principal); E78.00 Pure hypercholesterolemia, unspecified; E78.5 Hyperlipidemia, unspecified; K21.9 Gastro-esophageal reflux disease without esophagitis; Z90.49 Acquired absence of other specified parts of digestive tract; Z90.710 Acquired absence of both cervix and uterus; Z98.1 Arthrodesis status
CPT/HCPCS: 77063; 77067

== ENCOUNTER → 2019-05-30 | Outpatient (CLI) | payer MEDICARE, OTHER ==
--- NOTE | 2019-05-30 17:14 | RAD ---
Exam: Left knee 3 views INDICATION: Left knee pain TECHNIQUE: Frontal, lateral and oblique views of the left knee Comparisons: None FINDINGS: Bone mineralization is normal. No acute or healed fractures. Soft tissues are unremarkable. Joint spaces are well-maintained. IMPRESSION: No acute osseous abnormality. Electronically signed by: Mc Warren MD (05/30/2019 5:11 PM) [id number]
== END | disposition home or self-care (01) ==
LOC: RAD 16:32
PROVIDERS: ATTEND Family Medicine
DX: M25.562 Pain in left knee (principal); Z87.39 Personal history of other diseases of the musculoskeletal system and connective tissue
CPT/HCPCS: 73562

== ENCOUNTER → 2020-02-28 | Outpatient (CLI) | payer MEDICARE, OTHER ==
[~2020-02-28] MED LIST changes: +MULT-445 PO; -MULT1TAB52 PO
--- NOTE | 2020-02-29 13:56 | RAD ---
DATE: 02/28/2020 9:49 AM EXAM: MAMMO MARLENA SCREENING BILATERAL HISTORY: Screening COMPARISON: 02/26/2017, 03/04/2018 and 02/22/2019 Bilateral CC and MLO views of the breasts were performed. Bilateral breast tomosynthesis was performed in CC and MLO projections. This study was interpreted with the benefit of Computerized Aided Detection (CAD). FINDINGS: Breast Density: SCATTERED The breast parenchyma shows scattered fibroglandular densities. Breast parenchyma level B No suspicious masses, microcalcifications or architectural distortion is present to suggest malignancy in either breast. The visualized axillae are unremarkable. IMPRESSION: No mammographic evidence of malignancy. BI-RADS CATEGORY: 1 NEGATIVE RECOMMENDED FOLLOW-UP: 12M 12 MONTH FOLLOW-UP Annual screening mammography is recommended, unless clinically indicated sooner based on symptoms or change in physical exam. PQRS compliance statement: Patient information was entered into a reminder system with a target due date for the next mammogram. Mammography is a sensitive method for finding small breast cancers, but it does not detect them all and is not a substitute for careful clinical examination. A negative mammogram does not negate a clinically suspicious finding and should not result in delay in biopsying a clinically suspicious abnormality. "Our facility is accredited by the [employer] Mammography Program."
== END ==
LOC: MAMMO 09:40
PROVIDERS: ATTEND Family Medicine
DX: Z12.31 Encounter for screening mammogram for malignant neoplasm of breast (principal)
CPT/HCPCS: 77063; 77067

== ENCOUNTER → 2021-02-20 | Outpatient (CLI) | payer MEDICARE, OTHER ==
[~2021-02-20] MED LIST changes: -OMEP40CA45 PO; +OMEP40CA7 PO
--- NOTE | 2021-02-20 17:15 | RAD ---
XR CHEST 2V History: Reason: COUGH / Spl. Instructions: / History: Comparison: None. Findings: No consolidation or pleural effusion. Normal heart size. No pneumothorax. Cervical spine postoperativ e changes. Impression: 1. No acute cardiopulmonary process. Electronically signed by: Singh Travis DO (02/20/2021 5:12 PM) [id number]
== END ==
LOC: RAD 14:47
PROVIDERS: ATTEND Internal Medicine Critical Care Medicine
DX: R05.9 Cough, unspecified (principal); Z98.890 Other specified postprocedural states
CPT/HCPCS: 71046

== ENCOUNTER → 2021-03-04 | Outpatient (CLI) | payer MEDICARE, OTHER ==
--- NOTE | 2021-03-04 14:46 | RAD ---
DATE: 03/04/2021 EXAM: MG BILAT SCREEN+MARLENA HISTORY: Screening COMPARISON: 02/28/2020, 02/22/2019, 03/04/2018, 1220 03/11/2016 This study was interpreted with the benefit of Computerized Aided Detection (CAD). Breast Density: SCATTERED The breast parenchyma shows scattered fibroglandular densities. Breast pare nchyma level B. FINDINGS: No suspicious mass, suspicious calcification, or architectural distortion. IMPRESSION: No evidence of malignancy. BI-RADS CATEGORY: 1 NEGATIVE RECOMMENDED FOLLOW-UP: 12M 12 MONTH FOLLOW-UP PQRS compliance statement: Patient information was entered into a reminder system with a target due d ate for the next mammogram. Mammography is a sensitive method for finding small breast cancers, but it does not detect them all a nd is not a substitute for careful clinical examination. A negative mammogram does not negate a clin ically suspicious finding and should not result in delay in biopsying a clinically suspicious abnorma lity. "Our facility is accredited by the [employer] Mammography Program." Electronically signed by: Marilee Turner MD (03/04/2021 2:43 PM) [id number]
== END ==
LOC: MAMMO 10:54
PROVIDERS: ATTEND Family Medicine
DX: Z12.31 Encounter for screening mammogram for malignant neoplasm of breast (principal)
CPT/HCPCS: 77063; 77067

== ENCOUNTER → 2021-06-13 | Outpatient (CLI) | payer MEDICARE, OTHER ==
[~2021-06-13] MED LIST changes: +CONTRAST GIVEN. MC PRN; +IOHEXOL 240 MG/ML 50ML VIAL. PO ONE; +IOHEXOL 300 MG/ML 100ML VIAL. IV ONE
[2021-06-13 08:31] LABS: GFR 53.8
--- NOTE | 2021-06-13 11:54 | RAD ---
EXAMINATION: CT abdomen and pelvis with IV contrast. INDICATION:76 years, Female, abdominal pain. History of lymphoma. TECHNIQUE: Axial CT images of the abdomen and pelvis were obtained. Coronal and sagittal reformatted performed. COMPARISON: 02/22/2019. Exposure: One or more of the following individualized dose reduction techniques were utilized for thi s examination: 1. Automated exposure control 2. Adjustment of the mA and/or kV according to patient size 3. Use of iterative reconstruction technique. FINDINGS: LOWER CHEST: Unremarkable. ABDOMEN/PELVIS: No suspicious focal hepatic lesion. Cholecystectomy. Expected postcholecystectomy status with promine nt extrahepatic duct. Unremarkable spleen and pancreas. Nodular thickening of the left adrenal gland without discrete nodule. Right adrenal gland is unremarkable. No hydronephrosis or nephrolithiasis in either kidney. Similar focal cortical thinning in the upper pole kidneys. No bowel obstruction. Extensive colonic diverticulosis without acute diverticulitis. Uncomplicated du odenal diverticulum. Large amount of stool throughout the colon. Normal appendix. No lymphadenopathy in the abdomen or pelvis by size criteria. Moderate aortoiliac atherosclerotic calcifications without narrowing or dilation. Mesenteric arteries and portal veins are patent. Common origin of the celiac trunk and SMA. Unremarkable urinary bladder. Hysterectomy. MUSCULOSKELETAL STRUCTURES: Similar grade 1 anterolisthesis of L4-5. Severe degenerative changes at L4-5 and L5-S1. No acute osse ous process or suspicious lesion. IMPRESSION: 1. No acute intra-abdominal findings. 2. Extensive colonic diverticulosis without acute diverticulitis. 3. Large amount of stool throughout the colon. Correlate for constipation. Electronically signed by: Roberta Quispe MD (06/13/2021 11:52 AM) [facility]
== END ==
LOC: CT 08:07
PROVIDERS: ATTEND Internal Medicine Gastroenterology
DX: K57.30 Diverticulosis of large intestine without perforation or abscess without bleeding (principal); E27.8 Other specified disorders of adrenal gland; K57.10 Diverticulosis of small intestine without perforation or abscess without bleeding; K56.41 Fecal impaction; R63.5 Abnormal weight gain; M43.16 Spondylolisthesis, lumbar region; M47.817 Spondylosis without myelopathy or radiculopathy, lumbosacral region
CPT/HCPCS: 36415; 74177; 82565; 84520; Q9966; Q9967

== ENCOUNTER → 2021-07-03 | Day surgery (SDC) | payer MEDICARE, OTHER ==
[~2021-07-03] VITALS: Ht 152.4 cm; Wt 43.0 kg
[~2021-07-03] MED LIST changes: +AMLO-187 PO; -CONTRAST GIVEN. MC PRN; -IOHEXOL 240 MG/ML 50ML VIAL. PO ONE; -IOHEXOL 300 MG/ML 100ML VIAL. IV ONE; +IV RINGERS,LACTATED 1000ML 1,000 ML IV SCH; +LIDOCAINE 2% PF 5 ML VIAL. ONE; +PROPOFOL 10 MG/ML (20ML) VIAL. IV ONE; +fentaNYL PF VIAL 100 MCG/2 ML VIAL IVP PRN
[2021-07-03 07:58] VITALS: BP 125/58
[2021-07-03 09:51] VITALS: BP 106/58
--- NOTE | 2021-07-03 10:24 | RAD ---
2 views of the abdomen 07/03/2021 INDICATION: Pain following colonoscopy. Discussion: Mild gaseous distention of small and large bowel noted consistent with recent colonoscopy . No gross pneumoperitoneum is identified. No evidence of obstruction is seen. No acute osseous hernandez es are identified. IMPRESSION: Mild gaseous distention of large and small bowel Electronically signed by: Charlie Aj MD (07/03/2021 10:21 AM) [id number]
--- NOTE | 2021-07-08 19:12 | PATHOLOGY ---
[facility] Accession Number: [id number] . 01 Material submitted: . esophagus - DISTAL ESOPHAGEAL BX . 01 Clinical history: . ABD PAIN/HX GASTRIC LYMPHOMA, DIVERTICULITIS . 02 Diagnosis: Esophageal biopsies, distal esophagus: - Reflux changes. . (JPM:mm; 07/08/2021) [facility] 07/08/2021 1655 Local . 02 Comment: Sections of the distal esophageal biopsy reveal segments of focally tangentially oriented hyperplastic squamous esophageal mucosa. The findings are consistent with reflux changes. There is no evidence of Guardado's change, dysplasia, or malignancy. . (JPM:mml; 07/08/2021) . 02 Electronically signed: . Mathieu Ahn MD, Pathologist NPI- [id number] . 01 Gross description: . Received in formalin labeled "Semet, Lori, distal esophageal BX" are multiple knapp-brown soft tissue fragments measuring in aggregate 0.6 x 0.5 x 0.1 cm. The specimen is submitted entirely in A1. ([facility]; 07/04/2021) [facility] 07/04/2021 1205 Local . 02 Pathologist provided ICD-10: K21.9, R10.9 . 02 CPT . 000360 Specimen Comment: A courtesy copy of this report has been sent to [phone], [phone] Specimen Comment: [id number] Specimen Comment: Report sent to / DR VELA Performed at: 01 [facility] [address], [place], [place] [id number] MD Jose Link MD Phone: [phone] Performed at: 02 [facility] [address] [place], [place] [id number] MD Mathieu Ahn MD Phone: [phone]
== END | disposition home or self-care (01) ==
LOC: ENDOS 07:27
PROVIDERS: ATTEND Internal Medicine Gastroenterology
DX: K57.32 Diverticulitis of large intestine without perforation or abscess without bleeding (principal); R10.13 Epigastric pain; K57.30 Diverticulosis of large intestine without perforation or abscess without bleeding; K64.0 First degree hemorrhoids; K63.89 Other specified diseases of intestine; K21.00 Gastro-esophageal reflux disease with esophagitis, without bleeding; K29.50 Unspecified chronic gastritis without bleeding; K31.89 Other diseases of stomach and duodenum; E78.00 Pure hypercholesterolemia, unspecified; G47.30 Sleep apnea, unspecified; M19.90 Unspecified osteoarthritis, unspecified site; M81.0 Age-related osteoporosis without current pathological fracture; F32.9 Major depressive disorder, single episode, unspecified; Z90.710 Acquired absence of both cervix and uterus; Z98.890 Other specified postprocedural states; Z79.899 Other long term (current) drug therapy; Z72.89 Other problems related to lifestyle; Z88.8 Allergy status to other drugs, medicaments and biological substances; Z88.5 Allergy status to narcotic agent; Z91.013 Allergy to seafood
CPT/HCPCS: 43239; 45378; 74021; J2704